=== PATIENT | female | born 1995 | race American Indian/Alaskan Native ===

== ENCOUNTER 2021-10-31 21:29 | Outpatient (CLI) | payer MEDICAID ==
--- NOTE | 2021-11-01 01:07 | Ultrasound Report ---
ULTRASOUND OBSTETRIC Indication: well-being Findings: There is a single intrauterine . BPD = 8.4 cm = 33 weeks, 5 day(s). Head circumference = 30.4 cm = 33 weeks, 6 day(s). Abdominal circumference = 26.4 cm = 30 weeks, 1 day(s). Femur length = 5.8 cm = 30 weeks, 4 day(s). Overall estimated sonographic age = 32 weeks, 1 day(s). heart rate is 141 beats per minute. Estimated weight is 1660 grams position is cephalic. Cervix appears closed. movement is present. Amniotic fluid volume appears normal. Cervical length measures 2.8 cm Impression: 1. Single living intrauterine with estimated sonographic age of 32 weeks, 1 day(s). 2. No sonographic abnormality identified. Signer Name: Hank Reynoso MD Signed: 11/01/2021 1:03 AM Workstation Name: [id number]
[2021-11-01 06:24] VITALS: BP 106/65
== END 2021-11-01 13:15 | disposition still patient (30) ==
LOC: TRG 21:29 → LD 21:31 → APU 11-01 06:48 → TRG 11-01 13:15
PROVIDERS: ATTEND Obstetrics & Gynecology Gynecology
DX: O26.893 Other specified pregnancy related conditions, third trimester (principal); M54.50 Low back pain, unspecified; R10.9 Unspecified abdominal pain; Z3A.32 32 weeks gestation of pregnancy
CPT/HCPCS: 36415; 36600; 76815; 76817; 82731; 82805

== ENCOUNTER 2021-12-13 16:29 | Inpatient (IN) | payer MEDICAID ==
[2021-12-13] MEDS ORDERED: LACTATED RINGERS 1,000 ML IV ONE (17:13)
[2021-12-13] MEDS ORDERED: LACTATED RINGERS 1,000 ML ONE (17:17)
--- NOTE | 2021-12-13 19:27 | Ultrasound Report ---
Limited OB Ultrasound Biophysical profile ultrasound HISTORY: BPP. Evaluate JESSIE TECHNIQUE: Grayscale and color imaging performed. COMPARISON: 11/01/2019 to FINDINGS: Single viable intrauterine gestation with cephalic presentation. JESSIE is 2.2 cm. Heart rate is 141 bpm . On biophysical profile, the fetus received a score of 2 out of 2 for breathing, posture/tone, movemen t, and JESSIE. Total score is 8 out of 8. IMPRESSION: 1. Single viable intrauterine gestation with JESSIE of 2.2 cm. 2. Normal biophysical profile. Signer Name: Brannon Mauricio MD Signed: 12/13/2021 7:23 PM Workstation Name: [id number]
[2021-12-13 19:36] LABS: Amphetamine Screen,Urine Negative; Benzodiazepines Screen,Urine Negative; Cannabinoid Screen,Urine Negative; Cocaine Screen,Urine Negative; Methadone Screen,Urine Negative; Opiate Screen,Urine Negative
[2021-12-13] MEDS ORDERED: TERBUTALINE 1 MG/1 ML INJ SUB-Q PRN (19:40)
[2021-12-13] MEDS ORDERED: LIDOCAINE (2%) 20 MG/1 ML VIAL 20 ML MDV INFILTRATI ONE (19:40)
[2021-12-13] MEDS ORDERED: NalbUPHINE 10 MG/1 ML INJ IV PRN (19:40)
[2021-12-13] MEDS ORDERED: MINERAL OIL 30 ML ORAL LIQD PO PRN (19:40)
[2021-12-13] MEDS ORDERED: miSOPROStol 200 MCG TAB PR PRN (19:40)
[2021-12-13] MEDS ORDERED: OXYTOCIN 10 UNIT/1 ML INJ IM PRN (19:40)
[2021-12-13] MEDS ORDERED: ePHEDrine SULFATE 50 MG/1 ML INJ IV PRN (19:40)
[2021-12-13] MEDS ORDERED: METHYLERGONOVINE MALEATE 0.2 MG/ML VIAL IM PRN (19:40)
[2021-12-13] MEDS ORDERED: fentaNYL 100 MCG/2 ML INJ IV PRN (19:40)
[2021-12-13] MEDS ORDERED: LOPERAMIDE 2 MG CAP PO PRN (19:40)
[2021-12-13] MEDS ORDERED: CARBOPROST TROMETHAMINE 250 MCG/1 ML INJ IM PRN (19:40)
[2021-12-13] MEDS ORDERED: LACTATED RINGERS 1,000 ML IV SCH (19:45)
[2021-12-13 20:00] LABS: Bacteria,Urine 1+ /HPF (Negative); Bilirubin,Urine NEG (Negative); Blood,Urine NEG (Negative); Color,Urine Straw (Yellow); Protein,Urine <15 mg/dL mg/dL (Negative); Urobilinogen,Urine < 2.0 mg/dL (<2.0)
[2021-12-13] MEDS ORDERED: OXYTOCIN DRIP 30 UNITS/500 ML BAG IV SCH (20:00)
--- NOTE | 2021-12-13 20:09 | History and Physical Report ---
History of Present Illness Date of examination: 12/13/21 Date of admission: 12/13/21 Chief complaint: Admitted for induction of labor due to oligohydramnios. History of present illness: 26 year old admitted for induction of labor due to oligohydramnios. Patient received care at [facility] and records are available. LMP 03/15/21. EDC 12/20/21. 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 labs are as follows: A+, antibody screen negative, rubella immune, RPR nonreactive, HIV negative, hepatitis B surface antigen negative, hemoglobin electrophoresis AA, pap smear negative, chlamydia negative, gonorrhea negative, trichomonas negative, GBS negative, materniT 21 low risk, 1 hour glucose test 86. Past History Past Medical History: other (history of hydronephrosis 2018) [employer] History: gonorrhea (treated in 2018), herpes (denies lesions or prodromal symptoms, on Valtrex suppression). denies: abnormal PAP smear, chlamydia, hepatitis B, hepatitis C, HIV, syphilis, trichomonas Family/Genetic History: diabetes, heart disease, hypertension, cancer Social history: lives with family, full code. denies: smoking, alcohol abuse, prescription drug abuse, IV drug use - Obstetrical History Expected Date of Delivery: 12/20/21 Actual Gestation: 39 Week(s) 0 Day(s) : 5 Para: 2 Hx # Term Pregnancies: 1 Number of Pregnancies: 1 Spontaneous Abortions: 1 Induced : 1 Number of Living Children: 2 Medications and Allergies Allergies Allergy/AdvReac Type Severity Reaction Status Date / Time No Known Allergies Allergy Unverified 10/31/21 22:30 Active Meds: Active Medications Acetaminophen (Acetaminophen 325 Mg Tab) 650 mg PO Q4H PRN PRN Reason: Pain, Mild (1-3) Carboprost Tromethamine (Carboprost Tromethamine 250 Mcg/1 Ml Inj) 250 mcg IM ONCE PRN PRN Reason: Uterine Bleeding Ephedrine Sulfate (Ephedrine Sulfate 50 Mg/1 Ml Inj) 10 mg IV Q2M PRN PRN Reason: Hypotension Fentanyl (Fentanyl 100 Mcg/2 Ml Inj) 100 mcg IV Q2H PRN PRN Reason: Pain,Severe (7-10) LABOR PAIN Lactated Ringer's (Lactated Ringers) 1,000 mls @ 125 mls/hr IV DIRECT JENNIFER Oxytocin/Sodium Chloride (Pitocin/Ns 30 Unit/500ml) 30 units in 500 mls @ 40 mls/hr IV TITR JENNIFER; Protocol Ampicillin Sodium (Ampicillin/Ns 2 Gm/100 Ml) 2 gm in 100 mls @ 100 mls/hr IV ONCE ONE; Protocol Stop: 12/13/21 21:44 Ampicillin Sodium (Ampicillin/Ns 1 Gm/50 Ml) 1 gm in 50 mls @ 100 mls/hr IV Q4H JENNIFER; Protocol Loperamide HCl (Loperamide 2 Mg Cap) 2 mg PO ONCE PRN PRN Reason: give with Hemabate Methylergonovine Maleate (Methylergonovine Maleate 0.2 Mg/Ml Vial) 0.2 mg IM ONCE PRN PRN Reason: Uterine Bleeding Mineral Oil (Mineral Oil 30 Ml Oral Liqd) 30 ml PO QHS PRN PRN Reason: Constipation Misoprostol (Misoprostol 200 Mcg Tab) 800 mcg [place] ONCE PRN PRN Reason: Uterine Bleeding Nalbuphine HCl (Nalbuphine 10 Mg/1 Ml Inj) 10 mg IV Q2H PRN PRN Reason: Pain, Moderate (4-6) Oxytocin (Oxytocin 10 Unit/1 Ml Inj) 10 unit IM ONCE PRN PRN Reason: Uterine Bleeding Terbutaline Sulfate (Terbutaline 1 Mg/1 Ml Inj) 0.25 mg SUB-Q ONCE PRN PRN Reason: Hyperstimulation/Hypertonicity Review of Systems All systems: negative (infrequent contraction) - Vital Signs Vital signs: Vital Signs Pulse BP Pulse Ox 117 H 104/65 100 12/13/21 16:55 12/13/21 16:55 12/13/21 16:55 Temp Pulse Resp BP Pulse Ox 98.1 F 76 16 104/65 100 12/13/21 16:56 12/13/21 19:57 12/13/21 16:56 12/13/21 16:56 12/13/21 19:57 - Physical Exam Abdomen: Positive: normal appearance, soft. Negative: distention, tenderness, guarding, rigidity Genitourinary (Female): Positive: normal external genitalia, normal perenium. Negative: perineal/vulvar lesions (no lesions seen on careful exam with bright light upon admission) Vagina: Positive: normal moisture Uterus: Positive: enlarged. Negative: tender Anus/Rectum: Positive: normal perianal skin Extremities: Negative: tenderness, edema - Obstetrical FHR: category 1 Uterine Contraction Monitor Mode: External Cervical Dilatation: 2 Cervical Effacement Percentage: 30 station: -4 Results Result Diagrams: 12/13/21 19:20 All other labs normal. Assessment and Plan A: at 39 weeks gestation. Oligohydramnios. GBS negative. HSV 2 positive serology. P: Admit. Continuous EFM. Continue Valtrex for HSV suppression. Cervidil for cervical ripening.
[2021-12-13 20:33] LABS: Hematocrit 27.5 % (30.3-42.9); Hemoglobin 8.9 gm/dl (10.1-14.3); Mean Corpuscular HGB Conc 32 % (30-34); Mean Corpuscular Volume 75 fl (79-97); Platelet Count 240 K/mm3 (140-440); Red Blood Count 3.69 M/mm3 (3.65-5.03); Red Cell Distribution Width 14.7 % (13.2-15.2)
[2021-12-13] MEDS ORDERED: AMPICILLIN/NS 2 GM/100 ML 2 GM/100 ML BAG IV ONE (20:45)
[2021-12-13] MEDS: valACYclovir 500 MG TAB PO SCH (21:52)
[2021-12-13] MEDS ORDERED: DINOPROSTONE 10 MG VAG SUPP VG ONE ×2 (22:00→23:21)
[2021-12-13] MEDS ORDERED: AMPICILLIN/NS 1 GM/50 ML 1 GM/50 ML BAG IV SCH (23:45)
[2021-12-14] MEDS ORDERED: miSOPROStol 25 MCG TAB PO PRN (14:00)
[2021-12-14] MEDS ORDERED: OXYTOCIN DRIP 30,000 MILLIUNITS/500 ML BAG IV NR (14:23)
[2021-12-14] MEDS ORDERED: OXYTOCIN DRIP 30,000 MILLIUNITS/500 ML BAG IV ONE (14:25)
[2021-12-14] MEDS: valACYclovir 500 MG TAB PO SCH ×2 (14:49→22:00)
[2021-12-14] MEDS: OXYTOCIN DRIP 30 UNITS/500 ML BAG IV SCH ×2 (14:50→16:03)
[2021-12-14] MEDS ORDERED: NALOXONE 0.4 MG/1 ML INJ IV PRN (16:15)
--- NOTE | 2021-12-14 16:15 | Anesthesia Consultation ---
Anesthesia Consult and Med Hx - Airway Anesthetic Teeth Evaluation: Poor ROM Head & Neck: Adequate Mental/Hyoid Distance: Adequate Mallampati Class: Class II Intubation Access Assessment: Probably Good - Pulmonary Exam CTA: Yes - Cardiac Exam Cardiac Exam: RRR - Pre-Operative Health Status ASA Pre-Surgery Classification: ASA2 Proposed Anesthetic Plan: Epidural - Pulmonary Hx Asthma: No COPD: No Hx Pneumonia: No - Cardiovascular System Hx Hypertension: No - Central Nervous System Hx Seizures: No Hx Psychiatric Problems: No - Endocrine Hx Renal Disease: No Hx End Stage Renal Disease: No Hx Hypothyroidism: No Hx Hyperthyroidism: No - Hematic Hx Anemia: No Hx Sickle Cell Disease: No - Other Systems Hx Alcohol Use: No
[2021-12-14] MEDS ORDERED: fentaNYL-BUPIV 2 MCG/ML-0.125% 200 MCG/100 ML BAG EPIDURAL SCH (17:00)
[2021-12-14] MEDS ORDERED: oxyCODONE /ACETAMINOPHEN 5-325MG TAB PO ONE (17:10)
--- NOTE | 2021-12-14 17:53 | Procedure Note ---
OB Delivery Note - Delivery Date of Delivery: 12/14/21 Surgeon: NALDO TAYLOR Estimated blood loss: other (250cc) - Vaginal Delivery presentation: vertex Delivery position: OA Delivery induction: cervidil Delivery augmentation: pitocin Delivery monitor: external FHT, external uterine Route of delivery: Delivery placenta: spontaneous Delivery cord: 3 umbilical vessels Episiotomy: none Delivery laceration: none Anesthesia: none Delivery comments: Precipitous delivery with nurse to bedside of viable female , spontaneous delivery of intact placenta with 3vessel cord. Pt sustained no lacerations and with my bimanual, 50cc clots expressed. Mom and baby doing well. - A at 1 minute: 8 at 5 minutes: 9 Infant Gender: Female (wt 2930g; clear fluid)
[2021-12-14] MEDS: ACETAMINOPHEN 325 MG TAB PO PRN (22:00)
[2021-12-15] MEDS: ACETAMINOPHEN 325 MG TAB PO PRN ×2 (04:18→08:13)
[2021-12-15 09:05] LABS: Hematocrit 22.3 % (30.3-42.9); Hemoglobin 7.3 gm/dl (10.1-14.3)
[2021-12-15] MEDS ORDERED: HYDROcodone/ACETAMINOPHEN 5-325 MG TAB PO PRN (10:47)
--- NOTE | 2021-12-15 10:57 | Progress Note ---
Assessment and Plan A: day 1 S/P . Anemia. P: Supplement with oral iron. Repeat CBC tomorrow morning. Anticipate discharge home tomorrow if patient continues to do well and if H/H stable. Subjective - Subjective Date of service: 12/15/21 Principal diagnosis: day 1 S/P Interval history: No complaints; reports smalll amount of lochia. Patient reports: appetite normal, voiding normally, pain well controlled, flatus, ambulating normally, no dizzy ambulation, no nauseated : doing well Objective - Vital Signs Latest vital signs: Vital Signs Temp Pulse Resp BP BP Pulse Ox Pulse Ox 12/15/21 08:12 97.8 F 76 18 107/64 100 12/15/21 05:13 18 12/15/21 04:44 98.3 F 68 16 109/70 100 12/15/21 04:18 18 12/15/21 00:59 98.2 F 72 18 108/71 100 12/14/21 23:00 18 12/14/21 22:00 18 12/14/21 21:15 97.8 F 84 18 100/53 100 12/14/21 18:55 100 12/14/21 18:54 97.7 F 97 H 18 98/57 100 12/14/21 17:22 66 112/78 12/14/21 17:15 65 105/69 12/14/21 15:36 80 100 12/14/21 15:31 103 H 100 12/14/21 15:26 93 H 100 12/14/21 15:21 86 100 12/14/21 15:16 86 100 12/14/21 15:11 79 100 12/14/21 15:06 89 100 12/14/21 15:01 82 100 12/14/21 14:56 102 H 100 12/14/21 14:53 98 F 12/14/21 14:51 88 100 12/14/21 14:46 74 100 12/14/21 14:41 79 100 12/14/21 14:36 84 100 12/14/21 14:31 97 H 100 12/14/21 14:26 92 H 94 12/14/21 14:14 89 100 12/14/21 14:09 89 100 12/14/21 14:04 77 100 12/14/21 13:59 95 H 100 12/14/21 13:54 87 100 12/14/21 13:49 93 H 100 12/14/21 13:44 97 H 99 12/14/21 13:39 96 H 100 12/14/21 13:34 86 100 12/14/21 13:29 94 H 100 12/14/21 13:24 87 100 12/14/21 13:19 90 98 12/14/21 13:14 95 H 99 12/14/21 13:09 93 H 100 12/14/21 13:04 85 100 12/14/21 12:59 87 99 12/14/21 12:54 108 H 99 12/14/21 12:49 108 H 100 12/14/21 12:44 99 H 100 12/14/21 12:39 109 H 97 12/14/21 12:34 80 99 12/14/21 12:29 84 76 L 12/14/21 11:10 94 H 100 12/14/21 11:05 84 100 12/14/21 11:04 51 L 12/14/21 10:59 95 H 100 12/14/21 10:54 71 100 Intake and Output 12/14/21 12/15/21 12/15/21 23:59 07:59 15:59 Intake Total 482.433 360 120 Output Total 600 Balance -117.567 360 120 Intake: IV 2.433 PITOCin/NS 30 UNIT/500ML 2.433 30 units In 500 ml @ 1 MILLIUNITS/MIN 1 mls/hr IV TITR JENNIFER Rx#:[id number] Oral 240 120 Intake, Free Water 240 360 Output: Urine 600 Void 600 Other: Total, Intake Amount 240 120 Total, Output Amount 400 # Voids Void 1 2 1 Estimated Blood Loss 250 - Exam Cardiovascular: Present: Regular rate Lungs: Present: Clear to auscultation Abdomen: Present: normal appearance, soft. Absent: distention, tenderness, guarding, rigidity Uterus: Present: normal, firm, fundal height below umbilicus (fundus firm and midline at 2 FB below umbilicus). Absent: bogginess, tenderness Extremities: Absent: tenderness - Labs Labs: Abnormal lab results 12/15/21 Range/Units 08:01 Hgb 7.3 L (10.1-14.3) gm/dl Hct 22.3 L (30.3-42.9) %
[2021-12-15] MEDS ORDERED: FERROUS SULFATE 325 MG TAB PO SCH (14:00)
[2021-12-15] MEDS: IBUPROFEN 800 MG TAB PO PRN (14:39)
[2021-12-15] MEDS: FERROUS SULFATE 325 MG TAB PO SCH ×2 (14:39→20:38)
[2021-12-16 04:34] LABS: Basophils % (Auto) 0.3 % (0.0-1.8); Eosinophils # (Auto) 0.1 K/mm3 (0.0-0.4); Eosinophils % (Auto) 1.3 % (0.0-4.3); Hemoglobin 6.2 gm/dl (10.1-14.3); Lymphocytes # (Auto) 2.4 K/mm3 (1.2-5.4); Lymphocytes % (Auto) 31.8 % (13.4-35.0); Mean Corpuscular HGB Conc 33 % (30-34); Mean Corpuscular Volume 74 fl (79-97); Monocytes # (Auto) 0.5 K/mm3 (0.0-0.8); Monocytes % (Auto) 6.8 % (0.0-7.3); Platelet Count 221 K/mm3 (140-440); Red Blood Count 2.52 M/mm3 (3.65-5.03); Red Cell Distribution Width 14.8 % (13.2-15.2)
[2021-12-16 05:00] LABS: Hematocrit 18.7 % (30.3-42.9)
--- NOTE | 2021-12-16 06:40 | Event Note ---
Date: 12/16/21 Hemoglobin 6.2. Hematocrit 18.7. Patient has small amount of lochia now and no clots. Fundus firm. Discussed with patient low H&H and patient agrees to take blood transfusion (has been ordered). Discussed risks and benefits of PRBCs with patient.
[2021-12-16] MEDS ORDERED: SODIUM CHLORIDE 0.9% 500 ML 500 ML IV ONE (06:48)
[2021-12-16] MEDS ORDERED: diphenhydrAMINE 25 MG CAP PO NR (07:18)
[2021-12-16] MEDS: ACETAMINOPHEN 325 MG TAB PO PRN (08:09)
[2021-12-16] MEDS: FERROUS SULFATE 325 MG TAB PO SCH ×2 (08:09→14:11)
--- NOTE | 2021-12-16 10:30 | Progress Note ---
Assessment and Plan A: PP Day #2 Severe Anemia P: Follow Routine Orders Currently receiving blood transfusion Call Dr. Rooney after blood transfusion and CBC for Plan of Care Subjective - Subjective Date of service: 12/16/21 Principal diagnosis: day 1 S/P Patient reports: appetite normal, voiding normally, pain well controlled, flatus, ambulating normally, other (Denies fatigue, dizziness, light-headness, chest pain, and SOB) : doing well, bottle feeding Objective - Vital Signs Latest vital signs: Vital Signs Temp Pulse Resp BP Pulse Ox Pulse Ox 12/16/21 09:59 98.5 F 74 16 101/60 100 12/16/21 09:29 98.5 F 70 16 98/49 100 12/16/21 08:59 98.5 F 81 16 99/54 100 12/16/21 08:45 98.3 F 77 16 92/54 99 99 12/16/21 07:18 98.3 F 79 16 92/54 100 12/16/21 00:32 98.2 F 86 14 98 12/15/21 20:20 98 12/15/21 16:54 98.0 F 85 18 101/60 100 12/15/21 12:36 98.1 F 91 H 18 109/65 99 Intake and Output 12/15/21 12/16/21 12/16/21 22:59 06:59 14:59 Intake Total 820 0 Balance 820 0 Intake: Oral 340 Intake, Free Water 480 Blood Product 0 Leukoreduced Red Blood 0 Cells Unit [id number] Other: Total, Intake Amount 100 # Voids Void 1 1 - Exam Breasts: Present: normal Cardiovascular: Present: Regular rate Lungs: Present: Clear to auscultation, Normal air movement Abdomen: Present: normal appearance, soft, normal bowel sounds Extremities: Present: normal - Labs Labs: Abnormal lab results 12/13/21 12/16/21 Range/Units 19:20 03:32 RBC 2.52 L (3.65-5.03) M/mm3 Hgb 6.2 L (10.1-14.3) gm/dl Hct 18.7 L* (30.3-42.9) % MCV 74 L (79-97) fl MCH 25 L (28-32) pg Crossmatch See Detail
[2021-12-16 15:59] LABS: Basophils % (Auto) 0.3 % (0.0-1.8); Eosinophils # (Auto) 0.1 K/mm3 (0.0-0.4); Eosinophils % (Auto) 1.2 % (0.0-4.3); Lymphocytes # (Auto) 1.9 K/mm3 (1.2-5.4); Lymphocytes % (Auto) 24.6 % (13.4-35.0); Mean Corpuscular HGB Conc 33 % (30-34); Mean Corpuscular Volume 79 fl (79-97); Monocytes # (Auto) 0.5 K/mm3 (0.0-0.8); Monocytes % (Auto) 6.2 % (0.0-7.3); Platelet Count 258 K/mm3 (140-440); Red Blood Count 3.78 M/mm3 (3.65-5.03); Red Cell Distribution Width 16.8 % (13.2-15.2)
[2021-12-16 16:05] LABS: Hematocrit 28.8 % (30.3-42.9); Hemoglobin 9.7 gm/dl (10.1-14.3)
[2021-12-16 16:48] VITALS: BP 100/61
[2021-12-16] MEDS: IBUPROFEN 800 MG TAB PO PRN (17:10)
== END 2021-12-16 18:09 | disposition home or self-care (01) | DRG 774 ==
LOC: TRG 16:29 → APU 16:31 → TRG 19:40 → LD 21:00 → OB 12-14 18:51
PROVIDERS: ADMIT Obstetrics & Gynecology; ATTEND Obstetrics & Gynecology
PROC: 10E0XZZ Delivery of Products of Conception, External Approach (ICD-10-PCS; principal; 2021-12-14)
DX: O41.03X0 Oligohydramnios, third trimester, not applicable or unspecified (principal); O98.52 Other viral diseases complicating childbirth; Z20.822 Contact with and (suspected) exposure to COVID-19; O90.81 Anemia of the puerperium; B00.9 Herpesviral infection, unspecified; Z3A.39 39 weeks gestation of pregnancy; Z37.0 Single live birth; Z83.3 Family history of diabetes mellitus; Z80.8 Family history of malignant neoplasm of other organs or systems; Z82.49 Family history of ischemic heart disease and other diseases of the circulatory system
CPT/HCPCS: 36415; 59025; 59200; 76815; 76819; 80307; 81001; 84112; 85014; 85018; 85025; 85027; 86592; 86850; 86900; 86901; 86920; 96360; G0378; J2590; J7040; J7120; P9016; U0003